=== PATIENT | male | born 1980 | race Caucasian/White ===

== ENCOUNTER 2019-02-26 13:37 | Emergency (ER) | payer OTHER ==
[2019-02-26 14:25] VITALS: BP 111/76
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
== END 2019-02-26 16:00 | disposition home or self-care (01) ==
LOC: EDSEX 13:37 → UCEAST 13:37
DX: S00.81XA Abrasion of other part of head, initial encounter (principal); S60.512A Abrasion of left hand, initial encounter; S60.410A Abrasion of right index finger, initial encounter; S50.311A Abrasion of right elbow, initial encounter; S00.211A Abrasion of right eyelid and periocular area, initial encounter; S80.212A Abrasion, left knee, initial encounter; V18.0XXA Pedal cycle driver injured in noncollision transport accident in nontraffic accident, initial encounter; Y93.55 Activity, bike riding; Y92.410 Unspecified street and highway as the place of occurrence of the external cause; Y99.8 Other external cause status
CPT/HCPCS: 70450; 99201; G0463